=== PATIENT | male | born 1955 | race Caucasian/White ===

== ENCOUNTER 2020-04-15 10:37 | Emergency (ER) | payer MEDICARE, SELFPAY ==
--- NOTE | ~2020-04-15 | CT_ITS ---
EXAMINATION: CT abdomen pelvis wo con DATE: 04/15/2020 11:26 INDICATION: Hematuria TECHNIQUE: Computed tomography (CT) of the abdomen and pelvis was performed without intravenous contr ast. The dose-length product (DLP) was 903.51 mGy-cm. Automated exposure control and iterative recons truction technique were employed. COMPARISON: None FINDINGS: There is a calcified granuloma of the right lower lobe. The heart size is normal. The liver , spleen, pancreas, gallbladder, and adrenal glands are normal. There are nonobstructing stones in th e kidneys which measure up to 2 mm. There is no hydronephrosis or hydroureter. There is diffuse wall thickening of the urinary bladder with edematous stranding of the surrounding fat. There is calcified atherosclerosis of the aorta and many of the other arteries. No pathologically enlarged abdominal or pelvic lymph nodes are identified. There is no free intraperitoneal gas or evidence of bowel obstruc tion. Colonic diverticulosis is present without evidence of diverticulitis. The appendix is normal. T here is severe lumbar spondylosis. Orthopedic stabilization hardware is present in the right femur. IMPRESSION: 1. Diffuse wall thickening of the urinary bladder with surrounding fat stranding, likely reflecting c ystitis. 2. Nonobstructing bilateral nephrolithiasis. 3. Diverticulosis without diverticulitis. Reviewed, dictated and finalized at location A. IMPRESSION: 1. Diffuse wall thickening of the urinary bladder with surrounding fat strandin g, likely reflecting cystitis. 2. Nonobstructing bilateral nephrolithiasis. 3. Diverticulosis without diverticulitis.
[2020-04-15 10:37] VITALS: BP 163/86; PULSE 96; RESP 20; TEMP 37.3; O2SAT 96
--- NOTE | 2020-04-15 10:58 | ED.ABDPAIN ---
HPI - Abdominal Pain General Chief Complaint: Urogenital-Male Stated Complaint: 65 YO male w/ 3-4 day h/o suprapubic pressure associated w/ dysuria. Started having hematuria w/ worsening dysuria and abd pain today. Here for eval. Related Data Home Medications Medication Instructions Recorded Confirmed budesonide-formoterol [Symbicort] 1 inh INHALATION DAILY 04/15/20 04/15/20 clopidogrel 75 mg PO DAILY 04/15/20 04/15/20 ezetimibe 10 mg PO DAILY 04/15/20 04/15/20 insulin aspart U-100 [Novolog 0 unit SUBCUT DAILY 04/15/20 04/15/20 Flexpen U-100 Insulin] insulin detemir U-100 [Levemir 0 unit SUBCUT DAILY 04/15/20 04/15/20 FlexTouch U-100 Insuln] ipratropium bromide [Atrovent HFA] 1 puff INHALATION DAILY 04/15/20 04/15/20 ipratropium-albuterol [Combivent 2 puff INHALATION PRN 04/15/20 04/15/20 Respimat] metformin 1,000 mg PO DAILY 04/15/20 04/15/20 metoprolol succinate 50 mg PO DAILY 04/15/20 04/15/20 montelukast 10 mg PO DAILY 04/15/20 04/15/20 pravastatin 80 mg PO DAILY 04/15/20 04/15/20 Allergies Allergy/AdvReac Type Severity Reaction Status Date / Time No Known Allergies Allergy Mild Unverified 10/08/05 09:57 Review of Systems Review of Systems: All systems reviewed & are unremarkable except as noted in HPI and below Constitutional: Constitutional: Reports as per HPI Cardiovascular: Cardiovascular: Reports as per HPI and Reports no additional cardiovascular complaints Respiratory: Respiratory: Reports as per HPI and Reports no additional respiratory complaints Gastrointestinal: Gastrointestinal: Reports abdominal pain Genitourinary: Genitourinary: Reports no additional male genitourinary complaints, Reports hematuria, Reports dysuria and Reports urinary frequency Musculoskeletal: Musculoskeletal: Reports no additional musculoskeletal complaints and Reports as per HPI Integumentary/Breasts: Skin/Breast: Reports system reviewed and no additional complaints, except as docu and Reports as per HPI Neurologic: Reports system reviewed and no additional complaints, except as documented Endocrine: Endocrine: Reports no additional endocrine complaints PMFSH Past Medical History Medical History (Updated 04/15/20 @ 12:11 by Jonnathan Pugh MD) COPD (chronic obstructive pulmonary disease) DMII (diabetes mellitus, type 2) Hip fracture, right HLD (hyperlipidemia) HTN (hypertension) Social History Social History (Updated 04/15/20 @ 11:16 by Jonnathan Pugh MD) Tobacco type: cigars Alcohol intake: never Substance use: never Exam Const: General: healthy appearing, no acute distress and alert Orientation/consciousness: patient oriented x3 HENMT: Head: normal to inspection Eyes: Pupils: Equal, round and reactive pupils present Neck: Neck: normal visual inspection Chest: Chest palpation & inspection: normal inspection of the chest Resp: Effort & Inspection: normal respiratory effort Auscultation: clear to auscultation bilaterally Cardio: Rate: regular rate Rhythm: regular rhythm GI: GI Palp: Yes Soft to palpation and No Tenderness to palpation present (GI) : General: Yes no CVA tenderness Testes: Testes normal Back/Spine/Pelvis: Back: no CVA tenderness Skin: General skin exam: normal color Neuro: General: patient oriented x3, moves all extremities, no focal motor deficits and CN's II-XI intact bilaterally Course Course Emergency Course: W/U reviewed. MDM - Abdominal Pain Differential Diagnosis Differential diagnosis: Likely abdominal pain, gastroenteritis, small bowel obstruction and other (BPH, UTI) Medical Records Attestation: I reviewed the patient's medical records. Lab Data Attestation: I reviewed the patient's lab results. Critical Care Time Critical Care Time Critical Care Time: No Discharge Plan Discharge Clinical Impression: Cystitis with hematuria, Abnormal PSA Patient Disposition: Home, Self-Care Condition: Stable Instructions: Antibio
[2020-04-15 11:19] LABS: Basophils Absolute Auto 0.02 K/mm3 (0.00-0.10); Basophils Percent Auto 0.2 % (0.0-1.0); Eosinophils Absolute Auto 0.07 K/mm3 (0.02-0.50); Eosinophils Percent Auto 0.7 % (1.0-6.0); Hematocrit 41.9 % (37.0-46.0); Hemoglobin 13.7 g/dL (12.4-15.3); Immature Granulocyte Absolute 0.05 K/mm3 (0.00-0.00); Immature Granulocyte Percent A 0.5 % (0.0-0.0); Lymphocytes Absolute Auto 1.55 K/mm3 (1.10-4.50); Lymphocytes Percent Auto 15.4 % (18.0-42.0); Mean Corpuscular HGB Conc 32.7 g/dL (32.0-36.0); Mean Corpuscular Hemoglobin 30.6 pg (27.0-31.0); Mean Corpuscular Volume 93.5 fL (78.0-102.0); Mean Platelet Volume 10.4 fl (8.7-11.0); Monocytes Absolute Auto 0.67 K/mm3 (0.10-0.90); Monocytes Percent Auto 6.7 % (2.0-11.0); Neutrophils Absolute Auto 7.7 K/mm3 (1.7-7.2); Neutrophils Percent Auto 76.5 % (50.0-70.0); Platelet Count Result 199 K/mm3 (150-420); Red Blood Count 4.48 M/mm3 (4.70-6.10); Red Cell Distribution Width 14.3 % (11.6-14.4)
[2020-04-15] MEDS: ONDANSETRON INJ 4 MG/2 ML VIAL IV PUSH (11:20)
[2020-04-15] MEDS: MORPHINE SULFATE 2 MG/ML INJ IV PUSH (11:20)
[2020-04-15] MEDS: SODIUM CHLORIDE 0.9% IV 1,000 ML 999 ML IV CONT (11:20)
[2020-04-15 11:21] LABS: Add Urine Microscopic? YES; Appearance Urine Cloudy (Clear); Bilirubin Urine Negative (Negative); Blood Urine 3+ (Negative); Color Urine Brown (Yellow); Glucose Urine UA Trace (Negative); Ketones Urine Negative (Negative); Leukocyte Esterase Ur 2+ LEU/UL (Negative); Nitrate Urine Positive (Negative); Protein Urine 2+ (Negative); Specific Grav Ur 1.025 (1.010-1.020); Urobilinogen Urine 0.2 mg/dL (0.2-1.0); pH Urine 5.5 (5.0-8.0)
[2020-04-15 11:25] LABS: Bacteria Urine 1+ /hpf; RBC Urine >75 /hpf (0-2); Squamous Epithelial Cell Urine Rare /hpf (Few); WBC Urine >75 /hpf (0-3)
[2020-04-15 11:32] LABS: Partial Thromboplastin Time 30.3 SEC (22.3-31.6); Prothrombin Time 10.3 Seconds (9.64-11.0)
[2020-04-15 11:56] LABS: Alanine Aminotransferase 22 U/L (16-63); Albumin Level 3.5 g/dL (3.4-5.0); Alkaline Phosphatase 55 U/L (46-116); Anion Gap 11.7 mmol/L (7-16); Aspartate Amino Transferase 15 U/L (15-37); Bilirubin,Total 0.3 mg/dL (0.00-1.00); Blood Urea Nitrogen 16 mg/dL (7-18); Calcium 8.7 mg/dL (8.5-10.1); Carbon Dioxide 27 mmol/L (21-32); Chloride 103 mmol/L (98-108); Estimated CRCL calculation 58 ml/min; Estimated Glomerular Filt Rate > 60; Glucose 150 mg/dL (70-99); Lipase 104 U/L (73-393); Osmolality Calculated 290 mOsm/kg (285-295); Potassium 3.7 mmol/L (3.5-5.1); Sodium 138 mmol/L (136-145); Total Protein 7.3 g/dL (6.4-8.2)
[2020-04-15 11:58] LABS: Prostate Specific Antigen 6.2 ng/mL (< OR = 4.0)
[2020-04-15] MEDS: TAMSULOSIN HCL 0.4 MG CAPSULE PO (12:16)
[2020-04-15 12:29] VITALS: RESP 15; O2SAT 97
== END 2020-04-15 12:30 | disposition home or self-care (01) ==
PROVIDERS: Emergency Provider Family Medicine; PCP Internal Medicine
DX: N30.91 Cystitis, unspecified with hematuria (principal); R97.20 Elevated prostate specific antigen [PSA]; J44.9 Chronic obstructive pulmonary disease, unspecified; E11.9 Type 2 diabetes mellitus without complications; E78.5 Hyperlipidemia, unspecified; I10 Essential (primary) hypertension
CPT/HCPCS: 36415; 74176; 80053; 81001; 83690; 84153; 85025; 85610; 85730; 87077; 87086; 87088; 87186; 96361; 96374; 96375; 99283; 99284; A9270; J0696; J2270; J2405; J7030

== ENCOUNTER 2021-05-29 10:46 | Outpatient (CLI) | payer MEDICARE, SELFPAY ==
--- NOTE | ~2021-05-29 | CT_ITS ---
EXAMINATION: CT lung screening DATE: 05/29/2021 11:17 INDICATION: Personal history of nicotine dependence, current smoker with 40 pack year history TECHNIQUE: Computed tomography (CT) of the chest was performed without intravenous contrast. The dose -length product (DLP) was 275.12 mGy-cm. Automated exposure control and iterative reconstruction tech [employer] were employed. COMPARISON: None FINDINGS: There is mild emphysema. Calcified pulmonary nodules are consistent with old granulomatous disease. No noncalcified pulmonary nodules are identified. There is no pleural effusion or pneumotho rax. The lungs are free of acute opacities. No pathologically enlarged thoracic lymph nodes are ident ified. The heart size is normal. Coronary artery stents are noted. Subendocardial fat deposition in t he left ventricular apex is consistent with prior myocardial infarction. There is mild thoracic spond ylosis. IMPRESSION: 1. Lung-RADS category 1: Negative. Continue annual screening with noncontrast low-dose chest CT in 12 months. Reviewed, dictated and finalized at location A. IMPRESSION: 1. Lung-RADS category 1: Negative. Continue annual screening with noncontrast l ow-dose chest CT in 12 months.
== END 2021-05-29 10:47 | disposition home or self-care (01) ==
PROVIDERS: PCP Internal Medicine; Visit Provider Internal Medicine
DX: Z12.2 Encounter for screening for malignant neoplasm of respiratory organs (principal); Z87.891 Personal history of nicotine dependence
CPT/HCPCS: 71271

== ENCOUNTER 2022-07-09 00:13 | Day surgery (SDC) | payer MEDICARE, SELFPAY ==
[2022-06-27 14:17] VITALS: BMI 34.3
[2022-07-09 08:22] VITALS: BP 151/78; PULSE 64; RESP 18; TEMP 36.5; O2SAT 100; BMI 32.6
[2022-07-09] MEDS: LACTATED RINGERS 1,000 ML 150 ML IV CONT (08:41)
[2022-07-09 08:43] LABS: Glucose Point of Care 191 mg/dl (65-105)
--- NOTE | 2022-07-09 09:05 | PM.HPGS ---
History of Present Illness History of Present Illness Consent: Risks, benefits, and alternatives have been discussed and questions answered. Patient agrees to proceed with procedure. Chief complaint: positive cologuard Narrative: Taco Low is a 67 year old male Presents for screening colonoscopy. Recent Cologuard test was performed and found to be positive. Patient reports his current weight appetite and bowel movements are normal. Patient denies abdominal pain. Patient has had no bleeding. Family history noncontributory. Review of Systems Review of Systems: Review of systems noncontributory. ON LICENSE OF [facility] Past Medical History Medical History (Updated 07/09/22 @ 09:06 by Genaro Lyles MD) COPD (chronic obstructive pulmonary disease) DMII (diabetes mellitus, type 2) Hip fracture, right HLD (hyperlipidemia) HTN (hypertension) Social History Social History (Updated 04/15/20 @ 11:16 by Jonnathan Pugh MD) Smoking status: Current some day smoker Tobacco type: cigars Alcohol intake: never Substance use: never Substance use type: does not use Living arrangements: with family Spiritual care concerns: No Meds Home Medications and Allergies Home Medications Medication Instructions Recorded Confirmed Type budesonide-formoterol HFA 160 1 inh inhalation BID 04/15/20 07/09/22 History mcg-4.5 mcg/actuation aerosol inhaler (Symbicort) clopidogrel 75 mg tablet 75 mg PO DAILY 04/15/20 07/09/22 History ezetimibe 10 mg tablet 10 mg PO DAILY 04/15/20 07/09/22 History insulin aspart U-100 100 unit/mL 16 unit subcut TID 04/15/20 07/09/22 History (3 mL) subcutaneous pen (Novolog Flexpen U-100 Insulin aspart) insulin detemir U-100 100 unit/mL 40 unit subcut DAILY 04/15/20 07/09/22 History (3 mL) subcutaneous pen (Levemir FlexTouch U-100 Insulin) ipratropium 20 mcg-albuterol 100 2 puff inhalation BID 04/15/20 07/09/22 History mcg/actuation mist for inhalation (Combivent Respimat) metformin 1,000 mg tablet 1,000 mg PO BID 04/15/20 07/09/22 History metoprolol succinate 50 mg 50 mg PO DAILY 04/15/20 07/09/22 History tablet,extended release 24 hr montelukast 10 mg tablet 10 mg PO DAILY 04/15/20 07/09/22 History pravastatin 80 mg tablet 80 mg PO HS 04/15/20 07/09/22 History aspirin 81 mg tablet 81 mg PO DAILY 06/27/22 07/09/22 History Allergies Allergy/AdvReac Type Severity Reaction Status Date / Time No Known Allergies Allergy Mild Verified 07/09/22 08:33 Vital Signs Vital Signs - 24 hr 07/09/22 08:22 Temperature 97.7 F Pulse Rate 64 Respiratory Rate 18 Blood Pressure 151/78 H Pulse Oximetry 100 Oxygen Delivery Room Air Exam Narrative: Physical exam reveals patient to be alert. Vital signs stable. HEENT exam is unremarkable. Patient is anicteric. Lungs are clear to auscultation and percussion. Heart is without murmur or extra sounds. Abdomen bowel sounds are present soft nontender with no hepatosplenomegaly. Digital external rectal exam is normal. Assessment and Plan Assessment and plan (1) Encounter for screening colonoscopy: Code(s): Z12.11 - Encounter for screening for malignant neoplasm of colon Status: Acute Assessment and Plan: Patient presents today for screening colonoscopy. Appears to be at average risk for colon polyps. Further recommendations may be given after endoscopy.
--- NOTE | 2022-07-09 09:29 | WPDANESEPPF ---
Anes - Initial Pre Proc Eval Procedure: Operation Date: 07/09/22 09:45 Proposed Procedures p Colonoscopy - Genaro Lyles MD Date/Time: 07/09/22 09:29 Surgeon: Genaro Lyles MD Pre Op Diagnosis: positive cologuard Patient Data Age: 67 Gender: M Height: 1.68 m Weight: 91.8 kg Last Vital Signs Temp 97.7 F 07/09/22 08:22 Pulse 64 07/09/22 08:22 Resp 18 07/09/22 08:22 BP 151/78 H 07/09/22 08:22 Pulse Ox 100 07/09/22 08:22 O2 Del Method Room Air 07/09/22 08:22 Allergies Allergy/AdvReac Type Severity Reaction Status Date / Time No Known Allergies Allergy Mild Verified 07/09/22 08:33 Home Medications Medication Instructions Recorded Confirmed Type budesonide-formoterol HFA 160 1 inh inhalation BID 04/15/20 07/09/22 History mcg-4.5 mcg/actuation aerosol inhaler (Symbicort) clopidogrel 75 mg tablet 75 mg PO DAILY 04/15/20 07/09/22 History ezetimibe 10 mg tablet 10 mg PO DAILY 04/15/20 07/09/22 History insulin aspart U-100 100 unit/mL 16 unit subcut TID 04/15/20 07/09/22 History (3 mL) subcutaneous pen (Novolog Flexpen U-100 Insulin aspart) insulin detemir U-100 100 unit/mL 40 unit subcut DAILY 04/15/20 07/09/22 History (3 mL) subcutaneous pen (Levemir FlexTouch U-100 Insulin) ipratropium 20 mcg-albuterol 100 2 puff inhalation BID 04/15/20 07/09/22 History mcg/actuation mist for inhalation (Combivent Respimat) metformin 1,000 mg tablet 1,000 mg PO BID 04/15/20 07/09/22 History metoprolol succinate 50 mg 50 mg PO DAILY 04/15/20 07/09/22 History tablet,extended release 24 hr montelukast 10 mg tablet 10 mg PO DAILY 04/15/20 07/09/22 History pravastatin 80 mg tablet 80 mg PO HS 04/15/20 07/09/22 History aspirin 81 mg tablet 81 mg PO DAILY 06/27/22 07/09/22 History Laboratory Tests 07/09/22 08:40 POC Capillary Glucose 191 mg/dl H mg/dl (65-105) Patient hx anesthesia problems: none Family hx anesthesia problems: none Results Review: All pre-operative results and documents have been reviewed as part of the pre-operative evaluation. [facility] Past Medical History Medical History (Updated 07/09/22 @ 09:06 by Genaro Lyles MD) COPD (chronic obstructive pulmonary disease) DMII (diabetes mellitus, type 2) Hip fracture, right HLD (hyperlipidemia) HTN (hypertension) Social History Social History (Updated 04/15/20 @ 11:16 by Jonnathan Pugh MD) Smoking status: Current some day smoker Tobacco type: cigars Alcohol intake: never Substance use: never Substance use type: does not use Living arrangements: with family Spiritual care concerns: No Anes - Eval Final PreProcedure Day of Procedure 07/09/22 09:29 Patient weight: obese Heart: regular rate and rhythm Lungs: clear to auscultation Airway: Mallampati scale class II Neurological: alert and oriented Last oral intake: >/= 8 hours ASA classification: III Emergent: no Anesthetic plan: proceed Anesthesia type and monitoring: general GIVS and standard monitoring Results Review: All pre-operative results and documents have been reviewed as part of the pre-operative evaluation. Informed Consent: The patient's anesthetic plan and its attendant risks and benefits were discussed with the patient/family/POA. Questions were solicited and answers provided to the satisfaction of the patient/family/POA.
[2022-07-09 10:16] VITALS: BP 127/71; PULSE 91; RESP 25; O2SAT 96
[2022-07-09 10:26] VITALS: BP 135/106; PULSE 94; RESP 32; O2SAT 96
[2022-07-09 10:36] VITALS: BP 157/74; PULSE 83; RESP 21; O2SAT 100
[2022-07-09 10:36] LABS: Glucose Point of Care 155 mg/dl (65-105)
== END 2022-07-09 10:47 | disposition home or self-care (01) ==
PROVIDERS: PCP Internal Medicine; Visit Provider Internal Medicine Gastroenterology
PROC: 0DJD8ZZ Inspection of Lower Intestinal Tract, Via Natural or Artificial Opening Endoscopic (ICD-10-PCS; CPT 45378; principal; 2022-07-09 09:45)
DX: R19.5 Other fecal abnormalities (principal); D12.2 Benign neoplasm of ascending colon; K64.8 Other hemorrhoids; K57.30 Diverticulosis of large intestine without perforation or abscess without bleeding; Z79.84 Long term (current) use of oral hypoglycemic drugs; Z79.4 Long term (current) use of insulin; J44.9 Chronic obstructive pulmonary disease, unspecified; E11.9 Type 2 diabetes mellitus without complications; I10 Essential (primary) hypertension; E78.5 Hyperlipidemia, unspecified; Z79.82 Long term (current) use of aspirin; E66.9 Obesity, unspecified; Z68.32 Body mass index [BMI] 32.0-32.9, adult; F17.210 Nicotine dependence, cigarettes, uncomplicated
CPT/HCPCS: 45385; 82948; 88305; J2001; J2704; J7120

== ENCOUNTER 2023-04-14 21:31 | Emergency (ER) | payer MEDICARE, SELFPAY ==
[2023-04-14 21:32] VITALS: PULSE 94; RESP 22; TEMP 36.6; O2SAT 98
--- NOTE | 2023-04-14 21:34 | ECG_ITS ---
Measurements Intervals [place] Rate: 86 P: 61 OR: 141 QRS: -5 QRSD: 91 T: 80 QT: 338 QTc: 406 Interpretive Statements SINUS RHYTHM NONSPECIFIC T-WAVE ABNORMALITY- HIGH LATERAL LEADS BASELINE ARTIFACT- V4-V6 BORDERLINE ECG NO PREVIOUS ECG AVAILABLE FOR COMPARISON Electronically Signed On 04-15-2023 6:53:25 CDT by Yonny Marshall D.O.
[2023-04-14 21:36] VITALS: BP 172/80
--- NOTE | 2023-04-14 21:38 | ED.GENADULT ---
HPI - General Adult General Chief complaint: Unspecified Stated complaint: Pain in Arms History of Present Illness HPI narrative: 68yo man with copd presents with new onset of pain down both arms earlier today, constant. Has never had this before. Increased work of breathing and wheezing for the past few days which responds to his home nebulizer but he didn't use it yet today. No fevers, chills, cough, or chest pain. Back feels a little sore. No nausea, vomiting, or abdominal pain. Related Data Home Medications Medication Instructions Recorded Confirmed budesonide-formoterol HFA 160 1 inh inhalation BID 04/15/20 07/09/22 mcg-4.5 mcg/actuation aerosol inhaler (Symbicort) clopidogrel 75 mg tablet 75 mg PO DAILY 04/15/20 07/09/22 ezetimibe 10 mg tablet 10 mg PO DAILY 04/15/20 07/09/22 insulin aspart U-100 100 unit/mL 16 unit subcut TID 04/15/20 07/09/22 (3 mL) subcutaneous pen (Novolog FlexPen U-100 Insulin aspart) insulin detemir U-100 100 unit/mL 40 unit subcut DAILY 04/15/20 07/09/22 (3 mL) subcutaneous pen (Levemir FlexTouch U-100 Insulin) ipratropium 20 mcg-albuterol 100 2 puff inhalation BID 04/15/20 07/09/22 mcg/actuation mist for inhalation (Combivent Respimat) metformin 1,000 mg tablet 1,000 mg PO BID 04/15/20 07/09/22 metoprolol succinate 50 mg 50 mg PO DAILY 04/15/20 07/09/22 tablet,extended release 24 hr montelukast 10 mg tablet 10 mg PO DAILY 04/15/20 07/09/22 pravastatin 80 mg tablet 80 mg PO HS 04/15/20 07/09/22 aspirin 81 mg tablet 81 mg PO DAILY 06/27/22 07/09/22 Allergies Allergy/AdvReac Type Severity Reaction Status Date / Time No Known Allergies Allergy Mild Verified 07/09/22 08:33 Review of Systems Review of Systems: All systems reviewed & are unremarkable except as noted in HPI and below Constitutional: Constitutional: Denies chills and Denies fever(s) ENT: Denies dysphagia and Denies dizziness Cardiovascular: Cardiovascular: Denies chest pain Respiratory: Respiratory: Denies chest congestion, Denies cough, Reports dyspnea and Reports wheezing Gastrointestinal: Gastrointestinal: Denies abdominal pain PMFSH Past Medical History Medical History COPD (chronic obstructive pulmonary disease) DMII (diabetes mellitus, type 2) Hip fracture, right HLD (hyperlipidemia) HTN (hypertension) Social History Social History Smoking status: Current some day smoker Tobacco type: cigars Alcohol intake: never Substance use: never Substance use type: does not use Living arrangements: with family Spiritual care concerns: No Exam Const: General: healthy appearing and alert Nutritional Appearance: well nourished Eyes: Conjunctivae: conjunctivae normal Neck: Neck: no meningeal signs Resp: Effort & Inspection: labored and uses accessory muscles Auscultation: wheezes Other: expiratory wheezing bilaterally Cardio: Rate: regular rate Rhythm: regular rhythm Heart sounds: no murmurs GI: Inspection: non-distended GI Palp: Yes Soft to palpation and No Tenderness to palpation present (GI) Back/Spine/Pelvis: Back: no CVA tenderness Skin: General skin exam: normal color, no jaundice and no pallor Neuro: General: patient oriented x3 and moves all extremities Speech: normal speech Gait exam (Neuro): Normal gait present Extrem: General: no clubbing, cyanosis or edema Other: bilateral triceps tender to palpation with visible spasm, no overlying skin changes Course Vital Signs Vital signs: Vital Signs Temperature 36.6 C 04/14/23 21:32 Pulse Rate 94 04/14/23 21:32 Respiratory Rate 22 H 04/14/23 21:32 Pulse Oximetry 98 04/14/23 21:32 Oxygen Delivery Room Air 04/14/23 21:32 Temperature 36.6 C 04/14/23 21:32 Pulse Rate 86 04/14/23 21:52 Respiratory Rate 20 04/14/23 21:52 Blood Pressure 172/
[2023-04-14 21:42] VITALS: O2SAT 98
[2023-04-14 21:44] VITALS: PULSE 93; RESP 24; O2SAT 96
[2023-04-14] MEDS: IPRATROPIUM 0.5 MG/ALBUTEROL SULFATE 2.5 MG AMPUL.NEB 3 ML INHALATION (21:44)
[2023-04-14 21:52] VITALS: PULSE 86; RESP 20
[2023-04-14] MEDS: ORPHENADRINE CITRATE 30 MG/ML 2 ML VIAL 60 MG IM (22:03)
[2023-04-14] MEDS: KETOROLAC (*BKC) 60 MG/2 ML VIAL IM (22:04)
[2023-04-14] MEDS: diazePAM (*CRX) 5 MG TABLET 10 MG PO (22:04)
[2023-04-14 22:30] VITALS: BP 160/75; PULSE 74; RESP 18; TEMP 36.6; O2SAT 95
== END 2023-04-14 22:33 | disposition home or self-care (01) ==
PROVIDERS: Emergency Provider Emergency Medicine; PCP Internal Medicine
DX: M79.602 Pain in left arm (principal); M79.601 Pain in right arm; J44.1 Chronic obstructive pulmonary disease with (acute) exacerbation; R06.2 Wheezing; E11.9 Type 2 diabetes mellitus without complications; E78.5 Hyperlipidemia, unspecified; I10 Essential (primary) hypertension; F17.219 Nicotine dependence, cigarettes, with unspecified nicotine-induced disorders
CPT/HCPCS: 93005; 94640; 96372; 99284; A9270; J1100; J1885; J2360

== ENCOUNTER 2023-06-09 08:40 | Outpatient (CLI) | payer MEDICARE, SELFPAY ==
--- NOTE | 2023-06-09 09:20 | EST_ITS ---
Patient Info Name: Taco Low Age: 68 years : 1955 Gender: Male Ht: 65 in Wt: 204 lbs BSA: 2.10 m2 HR: 74 bpm BP: 133 / 68 mmHg Heart Rhythm: Sinus Rhythm Technical Quality: Good Exam Date: 06/09/2023 10:11 AM Exam Location: [facility] Patient Status: Outpatient Admit Date: 06/09/2023 Staff Ordering Physician: Nas Dougherty MD Attending Provider: Mack Mcclellan NMAA Exam Type: CA stress lenny w NM Study Info A regadenoson stress test was performed. History/Risk Factors Chronic Lung Disease: Yes Diabetes Mellitus: Yes Deep Vein Thrombosis (DVT): None History/Risk Factors CAD, stent placed 20 years ago. Summary 1. 1. Negative lexiscan stress test for ischemic ST changes by ECG criteria. 2. 2. Stable hemodynamics throughout the test. 3. 3. Nuclear scan to follow and will be reported separately. Please correlate with it. Protocol: LEXISCAN Stress ECG Details Stage: REST Duration (min): 3 min : 10 sec HR (bpm): 74 SBP (mmHg): 133 DBP (mmHg): 68 Stage: REST Duration (min): 8 min : 7 sec HR (bpm): 78 SBP (mmHg): 133 DBP (mmHg): 68 Stage: STAGE 1 Duration (min): 0 min : 11 sec HR (bpm): 76 SBP (mmHg): 133 DBP (mmHg): 68 Stage: RECOVERY Duration (min): 0 min : 49 sec HR (bpm): 94 SBP (mmHg): 133 DBP (mmHg): 68 Stage: RECOVERY Duration (min): 1 min : 49 sec HR (bpm): 95 SBP (mmHg): 143 DBP (mmHg): 56 Stage: RECOVERY Duration (min): 2 min : 49 sec HR (bpm): 93 SBP (mmHg): 137 DBP (mmHg): 61 Stage: RECOVERY Duration (min): 3 min : 49 sec HR (bpm): 92 SBP (mmHg): 140 DBP (mmHg): 63 Stage: RECOVERY Duration (min): 4 min : 49 sec HR (bpm): 91 SBP (mmHg): 140 DBP (mmHg): 65 Stage: RECOVERY Duration (min): 5 min : 22 sec HR (bpm): 87 SBP (mmHg): 140 DBP (mmHg): 65 Rest HR: 78 bpm Peak HR: 99 bpm Rest Sys BP: 133 mmHg Peak Sys BP: 143 mmHg Max Pred HR: 150 bpm % Max Pred HR: 66 % Target HR: 128 bpm Max RPP: 14,157 bpm*mmHg BP Response: Normal blood pressure response Termination Reason: Completed Protocol Cardiac Symptoms: None Total Time: 0 min : 11 sec Rest [place] BP: 68 mmHg Peak [place] BP: 56 mmHg Total Dose: 0.4 mg Resting ECG Sinus rhythm, anteroseptal infarct, age indeterminate, borderline ST-T wave in high lateral leads. Stress ECG No abnormal ST/T wave changes. Arrhythmias None. Report Signatures
--- NOTE | 2023-06-09 18:00 | WPDCARIOSTRE ---
Nuclear Stress Test INDICATIONS Indications: Chest pain PROCEDURE Procedure Performed: Myocardial Perf Spect-Multi Procedure: Patient underwent a lexiscan stress test and immediately was injected with 30.8 mCi of cardiolyte. Multiple tomographic images were obtained. These are of good quality. There is evidence of large size, severe anterior, septal and apical perfusion defects with stress imaging. In addition, there is moderate size, severe mid to apical inferior defect with stress imaging. A separate resting images were obtained after patient was injected with 10 mCi of cardiolyte. Multiple tomographic images were obtained. These are of good quality. There is evidence of large size, severe anterior, septal and apical perfusion defects with rest imaging. In addition, there is moderate size, severe mid to apical inferior defect with rest imaging. CONCLUSION Conclusion: 1. Myocardial perfusion imaging demonstrating a fixed large anterior, septal, apical, and a fixed moderate size mid to apical inferior perfusion defects suggestive of prior myocardial infarcts or scar. 2. No evidence of reversible ischemia. 3. Left ventriculogram demonstrates severe anteroapical hypokinesis and severe mid to apical inferior wall hypokinesis with moderately reduced measured ejection fraction of 37%. Left ventricle is moderately dilated at 141 ml. 4. TID score 1.1 is not elevated.
== END 2023-06-09 08:41 | disposition home or self-care (01) ==
LOC: CHSCARD 08:41
PROVIDERS: PCP Internal Medicine; Visit Provider Internal Medicine
DX: I25.110 Atherosclerotic heart disease of native coronary artery with unstable angina pectoris (principal)
CPT/HCPCS: 78452; 93017; A9502; J2785

== ENCOUNTER 2023-08-01 09:06 | Outpatient (CLI) | payer MEDICARE, SELFPAY ==
--- NOTE | 2023-08-01 09:13 | ECG_ITS ---
Measurements Intervals [place] Rate: 87 P: 59 MI: 144 QRS: -1 QRSD: 102 T: 75 QT: 339 QTc: 409 Interpretive Statements SINUS RHYTHM LOW QRS VOLTAGE IN PRECORDIAL LEADS CANNOT RULE OUT SEPTAL INFARCT, AGE INDETERMINATE BORDERLINE ST-T WAVE ABNORMALITY- LAT/HIGH LAT LEADS ABNORMAL ECG COMPARED TO ECG 04/14/2023 21:50:10 NO SIGNIFICANT CHANGES Electronically Signed On 08-01-2023 11:05:11 CDT by Yonny Marshall D.O.
== END 2023-08-01 09:07 | disposition home or self-care (01) ==
LOC: CHSCARD 09:08
PROVIDERS: PCP Internal Medicine; Visit Provider Internal Medicine Cardiovascular Disease
DX: R06.09 Other forms of dyspnea (principal); R94.31 Abnormal electrocardiogram [ECG] [EKG]
CPT/HCPCS: 93005

== ENCOUNTER 2023-08-18 14:26 | Outpatient (CLI) | payer MEDICARE, SELFPAY ==
--- NOTE | 2023-08-18 14:31 | ECHO_ITS ---
Patient Info Name: Taco Low Age: 68 years : 1955 Gender: Male Ht: 65 in Wt: 207 lbs BSA: 2.11 m2 HR: 85 bpm BP: 160 / 76 mmHg Heart Rhythm: Sinus Rhythm Technical Quality: Good Exam Date: 08/18/2023 3:55 PM Exam Location: Echo Lab Patient Status: Outpatient Admit Date: 08/18/2023 Staff Ordering Physician: Yonny Marshall DO Tank Tester: Hugo Lopez RDCS Attending Provider: Yonny Marshall DO Referring Physician: Rolando SLATER; Exam Type: CA echo doppler color flow Study Info Indications - OTHER FORMS OF DYSPNEA Complete two-dimensional, color flow and Doppler transthoracic echocardiogram is performed. History/Risk Factors Chronic Lung Disease: Yes Diabetes Mellitus: Yes Deep Vein Thrombosis (DVT): None Summary 1. Complete two-dimensional, color flow and Doppler transthoracic echocardiogram is performed. 2. Left ventricular chamber dimension is normal. 3. Left ventricular systolic function is normal, estimated at 55-60%. 4. There is mild concentric increased left ventricular wall thickness. 5. The left ventricular diastolic function is grade I diastolic dysfunction. 6. E/e' 7 is not elevated. 7. There is mild mitral valve regurgitation. 8. There is trace tricuspid valve regurgitation. 9. No pulmonary hypertension, estimated pulmonary arterial systolic pressure is 11 mmHg. Recommendations * Continue medical therapy for diabetes. Left Ventricle E/e' 7 is not elevated. Left ventricular chamber dimension is normal. Left ventricular systolic function is normal, estimated at 55-60%. There is mild concentric increased left ventricular wall thickness. The left ventricular diastolic function is grade I diastolic dysfunction. Right Ventricle Right ventricular systolic function is normal and with normal TAPSE 2.9 cm. Right ventricular chamber dimension is normal. Left Atria Left atrial chamber dimension is normal. Right Atria Right atrial chamber dimension is normal. Aortic Valve The aortic valve is trileaflet. There is no aortic valve stenosis. There is no aortic valve regurgitation. Pulmonic Valve There is no pulmonic regurgitation. Mitral Valve There is no mitral valve stenosis. There is mild mitral valve regurgitation. Tricuspid Valve There is trace tricuspid valve regurgitation. No pulmonary hypertension, estimated pulmonary arterial systolic pressure is 11 mmHg. Pericardium/Pleural There is no pericardial effusion. Inferior Vena Cava Normal inferior vena cava with >50% collapse upon inspiration consistent with normal right atrial pressure, 5 mmHg. Aorta The aortic root size at the sinus of Valsalva is normal. Left Ventricular Outflow Tract Name Value Normal LVOT 2D LVOT Diameter 2.0 cm LVOT Doppler LVOT Peak Velocity 127 cm/s LVOT Peak Gradient 6 mmHg LVOT Mean Gradient 3 mmHg LVOT VTI 28 cm LVOT VTI/AV VTI Ratio 0.8 LVOT Stroke Volume 88 ml Pulmonic Valve Name V
== END 2023-08-18 14:27 | disposition home or self-care (01) ==
LOC: CHSIMG 14:27
PROVIDERS: PCP Internal Medicine; Visit Provider Internal Medicine Cardiovascular Disease
DX: R06.09 Other forms of dyspnea (principal); I34.0 Nonrheumatic mitral (valve) insufficiency
CPT/HCPCS: 93306

== ENCOUNTER 2023-09-12 08:34 | Outpatient (CLI) | payer MEDICARE, SELFPAY ==
--- NOTE | ~2023-09-12 | CT_ITS ---
CT Scan of the Chest without Contrast: Clinical Indication: Lung cancer screening, personal history of nicotine dependence Technique: Contiguous sections were acquired throughout the chest without intravenous contrast. Dose reduction technique was used on this scan by utilizing automated exposure control and iterative recon struction technique. The dose-length product (DLP) was 222.29 mGy-cm. COMPARISON: 05/29/2021 Findings: There is no evidence of any significant mediastinal, hilar or axillary lymphadenopathy. There is chronic ossifications of the aorta and coronary arteries. There is no evidence of pleural or pericardial effusion. The lungs are clear, aside from calcified right lower lobe granuloma. Images through the upper abdomen reveal no abnormalities. Impression: Lung RADS 2: Benign appearance. 12 month follow-up screening CT advised. Reviewed, dictated and finalized at [facility]. [employer] Impression: Lung RADS 2: Benign appearance. 12 month follow-up screening CT advised.
== END 2023-09-12 08:35 | disposition home or self-care (01) ==
LOC: CHSIMG 08:36
PROVIDERS: PCP Internal Medicine; Visit Provider Internal Medicine
DX: Z12.2 Encounter for screening for malignant neoplasm of respiratory organs (principal); Z87.891 Personal history of nicotine dependence
CPT/HCPCS: 71271